=== PATIENT | male | born 1980 | race Caucasian/White ===

== ENCOUNTER 2017-03-01 18:59 | Emergency (ER) | payer BC ==
--- NOTE | 2017-03-01 19:22 | EDM.PDOC ---
ED HPI GENERAL MEDICAL PROBLEM - General Chief Complaint: Laceration Stated Complaint: left index finger laceration Time Seen by Provider: 03/01/17 19:20 Source of Information: Reports: Patient, Old Records ([facility] chart/EMR) History Limitations: Reports: No Limitations - History of Present Illness INITIAL COMMENTS - FREE TEXT/NARRATIVE: The patient drove himself to the emergency room via private automobile for evaluation of a laceration and crush injury of digit #2 of his left hand, which occurred at home at about 18:30 hours this evening. He has not injured this digit in the past with patient accidentally catching [place]. He is right-handed with his last tetanus booster on 11/06/96 by our records. No history of paresthesias, neurological deficits, foreign body, or other complaints or injuries. The patient denies any chest pain/pressure, heart flutter, dizziness, orthostasis, orthopnea, diaphoresis, paresthesias, recent decreased exercise tolerance, or any other anginal-type symptoms. No recent history of abdominal pain, heartburn, nausea, diarrhea, melena, gross hematochezia, or any food intolerance, including fatty foods, etc.. The patient also denies any recent fever, cough, wheezing, dyspnea , etc.. He did not treat the injury site or take any medications prior to arrival to our facility. He rates his discomfort at 2/10 Onset: Today, Sudden Onset Date: 03/01/17 Onset Time: 18:30 Duration: Constant Location: Reports: Upper Extremity, Left. Denies: Head, Face, Neck, Chest, Abdomen, Back, Pelvis, Upper Extremity, Right, Lower Extremity, Left, Lower Extremity, Right, Radiates to Quality: Reports: Ache, Sharp, Throbbing Severity: Mild Improves with: Reports: Rest Worsens with: Reports: Movement Context: Reports: Trauma (As above) Associated Symptoms: Denies: Confusion, Chest Pain, Cough, Diaphoresis, Fever/ Chills, Headaches, Malaise, Nausea/Vomiting, Shortness of Breath, Syncope, Weakness Treatments MOTOR ANALYST: Reports: Other (see below) (None) Left 2-Index finger Pain Score (Numeric/FACES): 2 - Related Data Allergies Allergy/AdvReac Type Severity Reaction Status Date / Time No Known Allergies Allergy Verified 09/26/14 17:10 Home Meds: Home Meds Clindamycin Hcl [IMW: Clindamycin] 150 mg PO .EVERY 8 HOURS #30 cap 03/01/17 [Rx ] Past Medical History HEENT History: Reports: Impaired Vision, Other (See Below). Denies: Allergic Rhinitis, Cataract, Glaucoma, Hard of Hearing, Macular Degeneration, Retinal Detachment Other HEENT History: Wears glasses Cardiovascular History: Reports: None. Denies: Aneurysm, Arrhythmia, Blood Clots/VTE/DVT, CAD, Heart Failure, Heart Murmur, High Cholesterol, Hypertension , [place], PVD, Syncope Respiratory History: Reports: None. Denies: Asthma, COPD, Intubation, Previous , PE, Pneumothorax, Sleep Apnea, TB Gastrointestinal History: Reports: None. Denies: Celiac Disease, Cholelithiasis , Chronic Constipation, Chronic Diarrhea, Colon Polyp, Gastritis, Hepatitis, Hiatal Hernia, Inflammatory Bowel Disease, Irritable Bowel Syndrome, Jaundice, Pancreatitis, PUD Genitourinary History: Reports: None. Denies: Acute Renal Failure, BPH, Chronic Renal Insuffiency, Renal Calculus, STD, Urinary Incontinence, UTI, Recurrent Musculoskeletal History: Reports: Fracture, Other (See Below). 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 Denies: Cerebral Aneurysms, Concussion, CVA, Headaches, Chronic, Head Trauma, Migraines, MS, Neuropathy, Peripheral, Parkinson's, Seizure, TIA Psychiatric History: Reports: None. Denies: Abuse, Victim of, ADD, ADHD, Addiction, Anxiety, Depression, Psych Hospitalization(s), PTSD, Suicide Attempt , Suicidal Ideation Endocrine/Metabolic History: Reports: None. Denies: Diabetes, Type I, Diabetes , Type II, Hypothyroidism, IDDM Hematologic History: Reports: None. Denies: Anemia, Blood Transfusion(s), Iron Deficiency Immunologic History: Reports: None. Denies: AIDS, HIV, SLE Oncologic (Cancer) History: Reports: None. Denies: Basal Cell Carcinoma, Hodgkin's Lymphoma, Leukemia, Lymphoma, Malignant Melanoma, Non-Hodgkin's Lymphoma, Squamous Cell Carcinoma Dermatologic History: Reports: None, Psoriasis. Denies: Eczema - Infectious Disease History Infectious Disease History: Reports: None. Denies: C-Difficile, Chicken Pox, Measles, Meningitis, Mononucleosis, MRSA, Mumps, Pertussis (Whooping Cough), Rubella, Scarlet Fever, Shingles, TB, VRE - Past Surgical History Head Surgeries/Procedures: Reports: None HEENT Surgical History: Reports: Oral Surgery, Other (See Below). Denies: Adenoidectomy, Eye Surgery, Laser Surgery, LASIK, Myringotomy w Tube(s), Naso- Sinus Surgery, Tonsillectomy Other HEENT Surgeries/Procedures: [place] teeth extraction 4 at age 20 Cardiovascular Surgical History: Reports: None. Denies: Varicose, Vascular Surgery Respiratory Surgical History: Reports: None. Denies: Thoracentesis GI Surgical History: Denies: Appendectomy, Cholecystectomy, Colonoscopy, EGD, Hernia, Abdominal, Hernia, Inguinal, Hernia Repair/Other, Polypectomy Male Surgical History: Reports: Circumcision, Other (See Below). Denies: Vasectomy Other Male Surgeries/Procedures: Circumcision as an Endocrine Surgical History: Reports: None. Denies: Thyroid Biopsy Neurological Surgical History: Denies: None, C-Spine, Discectomy, Laminectomy, Lumbar Spine, Spinal Fusion, Thoracic Spine, Vertebroplasty Musculoskeletal Surgical History: Reports: None. Denies: Arthroscopic Procedure , Carpal Tunnel, Ganglion Cyst, Joint Replacement, ORIF, Shoulder Surgery Oncologic Surgical History: Reports: None Dermatological Surgical History: Reports: None - Past Imaging History Past Imaging History: Reports: MRI (MRI of the cervical and thoracic spine in 2005 with mild T7-T8 disc prolapse) Social & Family History - Tobacco Use Smoking Status *Q: Former Smoker ([employer] in high school) Tobacco Use Within Last Twelve Months: No Years of Tobacco use: 1 Packs/Tins Daily: 1 (Experimentation as a teenager with cigarettes) Used Tobacco, but Quit: Yes Month Tobacco Last Used: Stop at age 17 Smoking Cessation Information Provided To Patient: No Second Hand Smoke Exposure: No Second Hand Smoke Education Provided: No - Caffeine Use Caffeine Use: Reports: Coffee (3 cups per day). Denies: Energy Drinks, Soda, Tea - Alcohol Use Alcohol Use History: Yes Days Per Week of Alcohol Use: 2 (No previous DWI, etc.) Number of Drinks Per Day: 3 (Usually beer) Total Drinks Per Week: 6 Alcohol Use in Last Twelve Months: Yes Alcohol Use Frequency: Socially - Recreational Drug Use Recreational Drug Use: No Drug Use in Last 12 Months: No Recreational Drug Type: Denies: Amphetamines (Speed), Cocaine, Heroin, Inhalants (Glues, Solvents, Aerosols), LSD (Acid), Marijuana/Hashish, Methamphetamine, Morphine - Living Situation & Occupation Living situation: Reports: (2003, 2 children), with Family Occupation: Employed (Self-employed moore, 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 ED EXAM, SKIN/RASH Exam: See Below Exam Limited By: No Limitations General Appearance: Alert, WD/WN, No Apparent Distress Head: Atraumatic, Normocephalic Neck: Normal Inspection, Supple, Non-Tender, Full Range of Motion. No: Lymphadenopathy (L), Lymphadenopathy (R), Thyromegaly Respiratory/Chest: No Respiratory Distress, Lungs Clear, Normal Breath Sounds, No Accessory Muscle Use, Chest Non-Tender. No: Stridor, Retractions Cardiovascular: Normal Peripheral Pulses, Regular Rate, Rhythm, No Edema, No Gallop, No JVD, No Murmur, No Rub. No: Gallop/S3, Gallop/S4, Friction Rub Peripheral Pulses: 4+: Radial (L), Radial (R) GI/Abdominal: Normal Bowel Sounds, Soft, Non-Tender, No Organomegaly, No Distention, No Abnormal Bruit, No Mass, Pelvis Stable. No: Guarding (Male) Exam: Deferred Rectal (Males) Exam: Deferred Back Exam: Normal Inspection, Full Range of Motion. No: CVA Tenderness (L), CVA Tenderness (R), Muscle Spasm Extremities: Normal Range of Motion, No Pedal Edema, Normal Capillary Refill, Other (Palpation pain over laceration site with denudement injury proximally 1.5 cm in length over the palmar aspect of digit #2 with complete loss of his nail, which is still hanging, no foreign body, crepitation, skeletal deformity, or sign of fracture) Neurological: Alert, Oriented, CN II-XII Intact, Normal Cognition, Normal Gait, Normal Reflexes, No Motor/Sensory Deficits Psychiatric: Normal Affect, Normal Mood Skin: Wound/Incision (As above), Other (Stable by history mild psoriasis over the olecranon and the patellar regions bilaterally). No: Diaphoretic, Lymphangitis Location, Skin: Upper Extremity, Left Characteristics: Other (As above) Associated features: Tenderness Lymphatic: No Adenopathy ED SKIN PROCEDURES - Additional/Other Procedure(s) Other (Free Text) Procedure(s): Denudement injury as above with distal finger tip hanging by one small capillary , which was easily removed with surgical scissors without significant bleeding, complications, etc. Minimal exposure of distal phalanx with finger soaked extensively in Betadine solution. Neosporin pressure dressing placed with additional tube gauze dressing by the nurse Course - Vital Signs Last Recorded V/S: Last Vital Signs Temp 36.4 C 03/01/17 19:22 Pulse 88 03/01/17 19:22 Resp 14 03/01/17 19:22 BP 138/89 03/01/17 19:22 Pulse Ox 97 03/01/17 19:22 Vital Signs - 24 hr 03/01/17 19:22 Temperature [ 36.4 C Oral] Pulse, 88 Peripheral [ Right Pulse Oximetry] Respiratory 14 Rate Blood Pressure 138/89 [Right Upper Arm] O2 Sat by Pulse 97 Oximetry - Orders/Labs/Meds Orders: Active Orders 24 hr Category Date Time Status Vaccines to be Administered [RC] PER UNIT ROUTINE Care 03/01/17 19:23 Active Fingers Second Digit Lt F1 [CR] Stat Exams 03/01/17 19:23 Ordered Obtain Past Medical Record [OM.PC] Routine Oth 03/01/17 19:23 Active Labs: None Meds: Medications Discontinued Medications Generic Name Dose Route Start Last Admin Trade Name Davidson PRN Reason Stop Dose Admin Clindamycin HCl 300 mg 03/01/17 19:52 03/01/17 20:01 Cleocin PO 03/01/17 19:53 300 mg ONETIME ONE Administration Diphtheria/Tetanus/Acell Pertussis 0.5 ml 03/01/17 19:23 03/01/17 19:27 Adacel IM 03/01/17 19:24 0.5 ml .ONCE ONE Administration Neomycin/Polymyxin/Bacitracin 1 each 03/01/17 19:23 03/01/17 19:28 Triple Antibiotic Oint TOP 03/01/17 19:24 1 each ONETIME ONE Administration - Radiology Interpretation Free Text/Narrative:: X-rays of digit #2 of the left hand, complete, shows evidence of moderate soft tissue injury with no foreign body, fracture, dislocation, etc. Departure - Departure Time of Disposition: 20:10 Disposition: Home, Self-Care 01 Clinical Impression: Laceration, Psoriasis - Discharge Information Prescriptions: Clindamycin Hcl [IMW: Clindamycin] 150 mg PO .EVERY 8 HOURS #30 cap Instructions: Laceration Care, Adult, Alct-xu-Aqhd, Nail Bed Injury, Easy-to- Read Referrals: PCP,None [Primary Care Provider] - Forms: ED Department Discharge Additional Instructions: 1. Follow up with your regular provider in 10-14 days as needed, if symptoms persist. 2. Antibacterial soap wash/soak with subsequent antibacterial dressing such as Neosporin, etc. as directed 2 times per day until the wound or laceration site completely heals. Keep the area clean and dry with activity restrictions as discussed. 3. Tylenol 650 mg by mouth every 4 hours and/or OTC ibuprofen 2-3 tabs by mouth every 6 hours with food as directed./needed. - Problem List & Annotations (1) Laceration SNOMED Code(s): 674397420 Code(s): VGI3319 - Status: Acute Priority: High Onset Date: 03/01/17 Annotation/Comment:: Denudement injury not amenable to laceration repair. Essentially distal tip and nail bed amputation with only minimal bone exposure. Secondary to bone exposure patient was started on clindamycin therapy in the emergency room. DTaP updated. Wound care, activity restrictions, etc. discussed (2) Psoriasis SNOMED Code(s): 4042977 Code(s): L40.9 - PSORIASIS, UNSPECIFIED Status: Acute Priority: Medium Annotation/Comment:: Currently under good control with medical therapy by patient history - Problem List Review Problem List Initiated/Reviewed/Updated: Yes - My Orders Last 24 Hours: My Active Orders 03/01/17 19:23 Vaccines to be Administered [RC] PER UNIT ROUTINE Fingers Second Digit Lt F1 [CR] Stat Obtain Past Medical Record [OM.PC] Routine - Assessment/Plan Last 24 Hours: My Active Orders 03/01/17 19:23 Vaccines to be Administered [RC] PER UNIT ROUTINE Fingers Second Digit Lt F1 [CR] Stat Obtain Past Medical Record [OM.PC] Routine Assessment:: As above Plan: As above. Extensive precautions were given to the patient, who is in agreement with the treatment plan. See Patient Instructions for further treatment and plan.
[2017-03-01 19:23] VITALS: BP 138/89
[2017-03-01] MEDS ORDERED: Diphtheria,Pertussis(Acell),Tetanus Vaccine 0.5 ML SDV IM ONE (19:23)
[2017-03-01] MEDS ORDERED: Bacitracin/Neomycin/Polymyxin B Oint 0.9 GM U/D Packet TOP ONE (19:23)
[2017-03-01] MEDS ORDERED: Clindamycin HCl 150 MG Cap PO ONE (19:52)
== END 2017-03-01 20:10 | disposition home or self-care (01) ==
LOC: LL.ED 18:59
DX: S61.211A Laceration without foreign body of left index finger without damage to nail, initial encounter (principal); L40.9 Psoriasis, unspecified; Z87.891 Personal history of nicotine dependence; W23.0XXA Caught, crushed, jammed, or pinched between moving objects, initial encounter
CPT/HCPCS: 73140; 90471; 90715; 99283; A9270

== ENCOUNTER 2022-03-01 16:32 | Emergency (ER) | payer BC ==
[2022-03-01 16:50] VITALS: BP 151/89; PULSE 85
[2022-03-01] MEDS: Lidocaine 1% 5 ML VIAL INJECT ONE ×2 (17:02→17:08)
[2022-03-01] MEDS: Bacitracin/Neomycin/Polymyxin B Oint 0.9 GM U/D Packet TOP ONE (17:03)
[2022-03-01] MEDS: Bupivacaine 0.25% 10 ML SDV INJECT ONE (17:08)
== END 2022-03-01 17:30 | disposition home or self-care (01) ==
LOC: LL.ED 16:32
DX: S61.212A Laceration without foreign body of right middle finger without damage to nail, initial encounter (principal); W26.8XXA Contact with other sharp object(s), not elsewhere classified, initial encounter
CPT/HCPCS: 12001; 99282; 99283; J3490